=== PATIENT | male | born 1990 | race Caucasian/White ===

== ENCOUNTER 2017-12-18 21:38 | Emergency (ER) | payer MEDICAID, OTHER ==
[~2017-12-18] VITALS: Ht 172.7 cm; Wt 57.7 kg
[2017-12-18 21:40] VITALS: BP 118/73
== END 2017-12-18 22:32 | disposition home or self-care (01) ==
LOC: ED 22:24
DX: Z00.00 Encounter for general adult medical examination without abnormal findings (principal)
CPT/HCPCS: 99281